=== PATIENT | male | born 2000 | race Native Hawaiian/Other Pacific Islander ===

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

== ENCOUNTER 2022-07-09 15:06 | Emergency (ER) | payer OTHER ==
[~2022-07-09] VITALS: Ht 172 cm; Wt 84.0 kg
[~2022-07-09 15:06] MED LIST: CHOL5000 PO
--- NOTE | 2022-07-09 15:51 | ED Upper Extremity ---
General Chief Complaint: Upper Extremity Stated Complaint: PUNCHED WALL - RIGHT HAND SWELLING / PAIN Nursing Triage Note: PT TO TRIAGE, PT STATES PUNCHED WALL. HAS R HAND SWELLING, BRUISING TO PALM SIDE OF HAND AND PAIN 05/11 Source: patient Exam Limitations: no limitations History of Present Illness Date Seen by Provider: Jul 09, 2022 Time Seen by Provider: 15:43 Initial Comments Here with complaint of right hand pain after punching a wall late last night with the right hand. Noted deformity at the time and was able to push it back in place from the top of the hand. Has continued pain and swelling to the hand now. Also notes some bruising on the palmar side. Onset: yesterday Severity: moderate Pain/Injury Location: right hand Method of Injury: direct blow Modifying Factors: Improves With Immobilization; Worse With Movement Allergies and Home Medications Allergies Coded Allergies: No Allergy Information Available (Unverified , 11/01/19) Patient Home Medication List Home Medication List Reviewed: Yes Cholecalciferol (Vitamin D3) (Vitamin D3) 5,000 Unit Capsule, 5,000 UNIT PO DAILY, (Reported) Entered as Reported by: LUKE RM on 11/01/19 0912 Review of Systems Constitutional: no symptoms reported; No weakness Musculoskeletal: joint pain, joint swelling, muscle pain, muscle stiffness Skin: change in color, lesions Psychiatric/Neurological: Numbness; Denies Weakness Past Zmtlciu-Hfbctj-Ffodqj Hx Patient Social History Tobacco Use?: Yes Use of E-Cig and/or Vaping dev: Yes E-Cig or Vaping type used: Nicotine Substance use?: Yes Substance type: Marijuana Immunizations Up To Date Tetanus Booster (TDap): Unknown PED Vaccines UTD: Yes Seasonal Allergies Seasonal Allergies: No Past Medical History Surgeries: Yes Ear Surgery Respiratory: No Cardiac: No Neurological: No Genitourinary: No Gastrointestinal: No Musculoskeletal: No Endocrine: No HEENT: No Cancer: No Psychosocial: No Integumentary: No Family Medical History Reviewed Nursing Family Hx FH: cancer 19 FATHER (Pt unsure of what kind of cancer father has) Hypertension Maternal Grandmother Polio G8 SISTER No Pertinent Family Hx History Limited due to altered mental status Physical Exam Vital Signs Vital Signs - First Documented 07/09/22 15:35 Temp 36.1 Pulse 60 Resp 18 B/P (MAP) 136/87 (103) Pulse Ox 98 Capillary Refill : Less Than 3 Seconds Height, Weight, BMI Height: '" Weight: lbs. oz. kg; 28.00 BMI Method: General Appearance: WD/WN, no apparent distress Cardiovascular: regular rate, rhythm, no murmur Respiratory: lungs clear, normal breath sounds Wrist: Yes pain (Right proximal and mid wrist), Yes soft tissue tenderness, Yes swelling Hand: Right, ecchymosis (Palmar surface at base of fourth and fifth), limited ROM (Mostly related to the fourth and fifth), soft tissue tenderness, swelling (Lateral aspect on the dorsum) Neurologic/Psychiatric: alert, oriented x 3 Skin: warm/dry, ecchymosis (As described above) Procedures/Interventions Suture Size: 5-0 Progress/Results/Core Measures Results/Orders My Orders Orders - BETTIE GOODEN MD Hand, Right, 3 Views (07/09/22 15:51) Hydrocodone/Apap 5/325 Tablet (Lortab 5 (07/09/22 16:45) Vital Signs/I&O 07/09/22 15:35 Temp 36.1 Pulse 60 Resp 18 B/P (MAP) 136/87 (103) Pulse Ox 98 Blood Pressure Mean: 103 Progress Progress Note : Progress Note Seen and evaluated. X-ray right hand ordered. Monitor patient. 1635: X-ray results noted. Hydrocodone 5/325 1 tab p.o. We will do AlumaFoam splint and I have discussed follow-up with the patient. He was given name of 2 different orthopedist. Discharged home with return precautions. Patient verbalized understanding of instructions and agreement with plan. Ice pack given. Diagnostic Imaging Diagonstic Imaging: Xray Plain Films/CT/US/NM/MRI: other Comments [facility], [place] NAME: GONZALEZ MATSON [facility] REC#: [id number] PT STATUS: REG ER : 2000 PHYSICIAN: BETTIE GOODEN MD ADMIT DATE: 07/09/22/ER Draft Date of Exam:07/09/22 HAND, RIGHT, 3 VIEWS INDICATION: Pain status post injury. Swelling. COMPARISON: None. FINDINGS: Multiple radiographic views of the right hand were obtained. Multiple small extraosseous calcifications are noted projecting posterior to the fifth carpometacarpal joint space. These are best visualized on the oblique and lateral views. Donor sites are not conspicuous. Remaining osseous structures are intact. Joint spaces are maintained. No unexpected radiopaque foreign bodies are seen. IMPRESSION: 1. Multiple small fracture fragments are identified posterior to the fifth carpometacarpal joint space, although donor sites are not conspicuous. May want to consider 14-day follow-up to assess for interval healing. Dictated on workstation # [id number] Dict: 07/09/22 1602 Trans: 07/09/22 1606 [id number] Interpreted by: HINA GONZALES MD Electronically signed by: Departure Impression Primary Impression: Fracture of hand Qualified Codes: S62.91XA - Unspecified fracture of right wrist and hand, initial encounter for closed fracture Disposition: HOME, SELF-CARE Condition: Stable Departure-Patient Inst. Decision time for Depature: 16:37 Referrals: [facility] [place] Primary Care Physician FABIAN AKERS MD, TERRY D MD Patient Instructions: Hand Fracture (DC) Add. Discharge Instructions: All discharge instructions reviewed with patient and/or family. Voiced understanding. Keep splint in place at all times except when showering. You need to call the orthopedist listed or of your choosing starting with Dr. Souza to get appointment for follow-up and further evaluation. You may take ibuprofen 800 mg every 8 hours as needed for pain. You may also take Tylenol/acetaminophen 1000 mg every 8 hours as needed for pain. You may use ice packs to the area of concern 20 minutes/h as needed to reduce swelling or pain. Keep your hand elevated is much as possible over the next day or 2 to reduce swelling and pain. Return for worse pain, numbness, weakness or other concerns as needed. Follow- up with your doctor as needed. BETTIE GOODEN MD Jul 09, 2022 15:51
--- NOTE | 2022-07-09 16:07 | Diagnostic Imaging Report ---
INDICATION: Pain status post injury. Swelling. COMPARISON: None. FINDINGS: Multiple radiographic views of the right hand were obtained. Multiple small extraosseous calcifications are noted projecting posterior to the fifth carpometacarpal joint space. These are best visualized on the oblique and lateral views. Donor sites are not conspicuous. Remaining osseous structures are intact. Joint spaces are maintained. No unexpected radiopaque foreign bodies are seen. IMPRESSION: 1. Multiple small fracture fragments are identified posterior to the fifth carpometacarpal joint space, although donor sites are not conspicuous. May want to consider 14-day follow-up to assess for interval healing. Dictated by: Dictated on workstation # [id number]
[2022-07-09] MEDS ORDERED: HYDROcodone/APAP 5 MG/325 MG (LORTAB) TAB PO ONE (16:45)
[2022-07-09 16:53] VITALS: BP 136/87
== END 2022-07-09 16:53 | disposition home or self-care (01) ==
LOC: EDUNIT# 15:06 → ER 15:07
DX: S62.604A Fracture of unspecified phalanx of right ring finger, initial encounter for closed fracture (principal); S62.606A Fracture of unspecified phalanx of right little finger, initial encounter for closed fracture; F17.290 Nicotine dependence, other tobacco product, uncomplicated; W22.01XA Walked into wall, initial encounter
CPT/HCPCS: 73130